=== PATIENT | female | born 1955 | race Caucasian/White ===

== ENCOUNTER 2017-06-08 13:51 | Emergency (ER) | payer OTHER ==
[~2017-06-08] VITALS: Ht 160 cm; Wt 77.1 kg
[~2017-06-08 13:51] MED LIST: ALBU90OI6; CALC1.25T; CHOL10002; DULO60; FLUSAL5005; IBUP800; LEVSOD150; LISHYD1012; LORA10 PO; NASACORT10.8 ML; Norco 5-325 Ta1 EACH PO; OMEP20ER; Prednisone20 MG PO; Robaxin-750750 MG PO; TIOT18; TRAZ150T57; Zovirax800 MG PO
[2017-06-08] MEDS ORDERED: Vistaril25 MG PO (14:46)
[2017-06-08] MEDS ORDERED: Vibramycin100 MG PO (14:46)
== END 2017-06-08 14:57 | disposition home or self-care (01) ==
LOC: ER 13:51
DX: S70.361A Insect bite (nonvenomous), right thigh, initial encounter (principal); I10 Essential (primary) hypertension; J44.9 Chronic obstructive pulmonary disease, unspecified; E03.9 Hypothyroidism, unspecified; Z87.891 Personal history of nicotine dependence; Z90.710 Acquired absence of both cervix and uterus; Z88.0 Allergy status to penicillin; Z79.899 Other long term (current) drug therapy; Z79.52 Long term (current) use of systemic steroids; W57.XXXA Bitten or stung by nonvenomous insect and other nonvenomous arthropods, initial encounter
CPT/HCPCS: 99283; J1100